=== PATIENT | male | born 1985 | race Caucasian/White ===

== ENCOUNTER 2024-01-07 20:06 | Emergency (ER) | payer BC ==
[~2024-01-07] VITALS: Ht 160 cm; Wt 66.8 kg
[2024-01-07 20:48] LABS: BASOPHILS # (AUTO) 0.1 X10'3 (0-0.2); BASOPHILS % (AUTO) 1.3 % (0-1); EOSINOPHILS % (AUTO) 0.2 % (0-6); HEMATOCRIT 33.2 % (42.0-52.0); HEMOGLOBIN 11.6 g/dl (14.0-17.9); LYMPHOCYTES # (AUTO) 1.1 X10'3 (1.1-4.8); LYMPHOCYTES % (AUTO) 11.9 % (21-51); MEAN CORPUSCULAR HEMOGLOBIN 40.4 PG (27.0-31.0); MEAN CORPUSCULAR HGB CONC 34.8 g/dL (33.0-36.5); MEAN CORPUSCULAR VOLUME 116.2 FL (78-98); MEAN PLATELET VOLUME 7.8 FL (7.4-10.4); MONOCYTES # (AUTO) 0.3 X10'3 (0-0.9); MONOCYTES % (AUTO) 3.6 % (2-12); PLATELET COUNT 209 X10'3 (140-440); RED BLOOD COUNT 2.86 X10'6 (4.70-6.10); RED CELL DISTRIBUTION WIDTH 13.9 % (11.5-14.5); WHITE BLOOD COUNT 9.6 X10'3 (4.5-11.0)
[2024-01-07 20:51] LABS: BILIRUBIN,URINE MODERATE (Neg); CLARITY,URINE SLIGHTLY CLOUDY (Clear); COLOR,URINE AMBER (Yellow); GLUCOSE, URINE 100 mg/dl (Neg); KETONES,URINE TRACE mg/dl (Neg); LEUKOCYTE ESTERASE ,URINE NEGATIVE (Neg); OCCULT BLOOD,URINE NEGATIVE (Neg); PROTEIN,URINE 30 mg/dl (Neg); UROBILINOGEN,URINE >=8.0 E.U/dL (0.2-1.0)
[2024-01-07 21:00] LABS: NITRITES, URINE NEGATIVE (Neg); UA COLLECTION TYPE CLN CATCH MIDSTREAM
[2024-01-07 21:01] LABS: ALANINE AMINOTRANSFERASE 15 U/L (12-78); ALBUMIN 2.4 G/DL (3.4-5.0); ALBUMIN/GLOBULIN RATIO 0.4 (1.1-1.5); ALKALINE PHOSPHATASE 129 IU/L (46-116); ANION GAP 3 (8-16); ASPARTATE AMINO TRANSFERASE 24 U/L (10-37); BILIRUBIN,TOTAL 1.9 MG/DL (0.1-1.0); BLOOD UREA NITROGEN 8 MG/DL (7-18); BUN/CREATININE RATIO 10.3 (10.0-20.0); CALCIUM 8.9 MG/DL (8.5-10.1); CHLORIDE 83 MMOL/L (99-107); CREATININE 0.78 MG/DL (0.60-1.10); GLUCOSE 101 MG/DL (70-104); LIPASE 63 U/L (16-77); SODIUM 125 MMOL/L (135-145); TOTAL CARBON DIOXIDE 39.3 MMOL/L (24-32); TOTAL PROTEIN 8.2 G/DL (6.4-8.2); eCRCL 105 ML/MIN; eGFR > 90 ML/MIN
[2024-01-07 21:01] LABS: HYALINE CASTS 0-3 /LPF (NEGATIVE); SQUAMOUS EPITHELIAL CELL,UR FEW /LPF (FEW)
[2024-01-07 21:03] LABS: FINE GRANULAR CAST 0-3 /LPF (NEGATIVE)
[2024-01-07 21:04] LABS: BACTERIA,URINE FEW /HPF (Neg); COARSE GRANULAR CAST 0-3 /LPF (NEGATIVE); RBC,URINE 0-2 /HPF (0-2); TRANSITIONAL EPI CELLS,URINE FEW /HPF; WBC,URINE 0-4 /HPF (0-4)
[2024-01-07] MEDS ORDERED: potassium Cl 20mEq/100mL bag 100 ML IV ONE (21:10)
[2024-01-07 21:22] LABS: TOTAL CELLS COUNTED 100
[2024-01-07 21:23] LABS: PLATELET ESTIMATE NORMAL; SMUDGE CELLS FEW
[2024-01-07] MEDS: potassium Cl 20 mEq SR tablet PO STA (22:25)
[2024-01-07] MEDS: potassium CL 10mEq/100ml bag 100 ML IV SCH (22:27)
[2024-01-07] MEDS: vancomycin/NS 1 GM ADD-VANTAGE 250 ML X 1 DOSE IV ONE (22:36)
[2024-01-08] MEDS: LORazepam 2 mg/ml vial IV ONE (00:05)
[2024-01-08] MEDS: piperacillin/tazo 3.375gm/50ml 50 ML IV SCH (00:13)
[2024-01-08] MEDS: normal saline 1000ml 1,000 ML IV ONE ×2 (00:24)
[2024-01-08] MEDS: thiamine 100mg/ml 2ml inj. IV ONE (00:30)
[2024-01-08] MEDS: magnesium sulf-water 2g/50mL 50 ML IV ONE (00:32)
[2024-01-08 02:00] VITALS: BP 124/79; PULSE 109; RESP 14; TEMP 99.1; O2SAT 92
== END 2024-01-08 02:04 | disposition short-term general hospital (02) ==
LOC: ER 20:07
DX: K65.1 Peritoneal abscess (principal); F10.20 Alcohol dependence, uncomplicated; E87.6 Hypokalemia; Y90.9 Presence of alcohol in blood, level not specified
CPT/HCPCS: 36415; 74176; 80053; 81001; 83690; 85007; 85025; 96365; 96366; 96368; 96375; 96376; 99291; 99292; J2060; J2543; J3370; J3411; J3480; J7030